=== PATIENT | female | born 1995 | race Hispanic/Latino ===

== ENCOUNTER 2022-10-03 10:10 | Emergency (ER) | payer SELFPAY ==
--- OUTSIDE RECORDS SUMMARY | 2022-10-03 10:15 | XMS REPORT | Continuity of Care Document ---
:1995 Author Organization [facility] t Address [address] [place] [address] Care Team Providers Name Role Phone DANIELLE SINHA Primary Care Physician Unavailable Talat Cruz Attending Clinician TALAT XIE Attending Clinician Unavailable DR JAVAD FLORES A Attending Clinician Unavailable DR JAVAD FLORES Admitting Clinician Unavailable Payers Payer Name Policy Type Policy Number Effective Date Expiration Date S ource [facility] [id number] 2013 00:00:00 Problems Condition Condition Condition Status Onset Resolution Last Treating Co mments Source Name Details Category Date Date Treatment Clinician Date Rubella Rubella Disease Active Univers immune immune 4-15 ity of 00:00: [place] 00 Medical Branch General General Disease Active Overview: Univ ers counseling counseling 4-14 Formattin ity of and advice and advice 00:00: g of this [place] for for note Medical contracept contracept might be Branch perlita perlita different management management from the original. ICD10 Diagnosis Term Clinical Administrative Coordinator Utility Morbid Morbid Disease Active Univers obesity obesity 4-14 ity of 00:00: [place] 00 Medical Branch Heart Heart Disease Active Univers palpitatio palpitatio 4-14 it y of ns ns 00:00: 00 Medical Branch Chest Chest Disease Active Univers discomfort discomfort 4-14 it y of 00:00: 00 Medical Branch Allergies, Adverse Reactions, Alerts Allergy Allergy Status Severity Reaction(s) Onset Inactive Treating Comm ents Source Name Type Date Date Clinician Willy Duarte Active Other - See 2020-10 depressi o Univers phetamin ty to comments 11-27 n ity of e-Amphet adverse 00:00: [place] amine reaction 00 Medical s Branch Ciproflo Propensi Active Anxiety 2020-10 Unive rs xacin ty to 2-19 ity of adverse 00:00: [place] reaction 00 Medical s Branch CIPROFLO DRUG Active Anxiety 2020-10 Univers XACIN INGREDI 2-19 ity of 00:00: [place] 00 [facility] Branch DEXTROAM DRUG Active Other-Cmnt 2020-10 Univ ers PHETAMIN 2-19 ity of E-AMPHET 00:00: [place] AMINE 00 Medical Branch NO KNOWN Drug Active Univers ALLERGIE Class ity of S [facility] Cipro DA Active Unknown [facility] Adderall DA Active Unknown [facility] Social History Social Habit Start Date Stop Date Quantity Comments Source Exposure to Not sure [facility] SARS-CoV-2 [facility] (event) Branch Alcohol intake 2021-09-26 2021-09-26 Current [facility] 00:00:00 00:00:00 non-drinker of [facility] alcohol [place] (finding) Tobacco use and 2014-01-20 2014-01-20 Never used Universit y of exposure 00:00:00 00:00:00 [facility] Sex Assigned At [birth year] Universit y of 00:00:00 00:00:00 [facility] Smoking Status Start Date Stop Date Source Never smoker [facility] Medications Ordered Filled Start Stop Current Ordering Indication Dosage Frequency Signature Comments Components Source Medication Medication Date Date Medication? Clinician (SIG) Name Name cephALEXin 2020-10- No 500mg 500 mg, Un avi (KEFLEX) 11-28- Oral, ONCE ity of capsule 500 05:00: 04:00 NOW, 1 [place] as mg 00 :00 dose, On [facility] 09/26/21 at 2300, VERITO
Re ason for Anti-Infec tive: Documented Infection< br>Documen halley Infection Site: Respirator y
Durat ion of Therapy: 7 days lidocaine 2020-10- No 10mL 10 mL, Unive rs 2% viscous 11-28- Oral, ity of (LIDOCAINE 04:00: 03:03 ONCE, 1 [place] as VISCOUS) 2 00 :00 dose, On Medic al % solution [place] [facility] 10 mL 09/26/21 at 2200, VERITO dexamethaso 2020-10- No 10mg 10 mg, Uni vers ne 11-28 12-20 Intramuscu ity of (DECADRON 03:30: 02:36 lar, ONCE, [place] PHOSPHATE) 00 :00 1 dose, On Med ical injection [place] [facility] 10 mg 09/26/21 at 2130, STAT ketorolac 2020-10- No 60mg 60 mg, Unive rs (TORADOL) 11-28 12-20 Intramuscu ity of injection 03:30: 03:30 lar, ONCE, [place] 60 mg 00 :00 1 dose, On Medical [place] [facility] 09/26/21 at 2130, VERITO lidocaine 2020-10 Yes [id number] 10mL Take 10 mL Univers 2% viscous -19 by mouth ity o f (LIDOCAINE 00:00: every 6 [place] VISCOUS) 2 00 (six) Medical % solution hours as Branc h needed for Local anesthesia (apply topically as needed). cephALEXin 2020-10 No [id number] 500mg Take 1 Univers (KEFLEX) 11-27 12-27 capsule by ity of 500 mg 00:00: 05:59 mouth 2 [place] capsule 00 :00 (two) Medical times Branch daily for 7 days. predniSONE 2020-10 No [id number] 40mg Take 2 Univers 20 mg 11-27 12-25 tablets by ity of tablet 00:00: 05:59 mouth [place] 00 :00 daily for Medical 5 days. Branch IBUPROFEN Yes Take by Unive rs ORAL 4-14 mouth. ity of 16:24: [address] Immunizations Ordered Filled Immunization Date Status Comments [facility] e Immunization Name Name Td 2008-05-22 Completed University 00:00:00 [facility] Vital Signs Vital Name Observation Time Observation Value Comments Source Systolic blood 2021-09-27 04:03:00 126 mm[Hg] Carmen burty of pressure [facility] Diastolic blood 2021-09-27 04:03:00 78 mm[Hg] Univperry rsity of pressure [facility] Heart rate 2021-09-27 04:03:00 89 /min [facility] Respiratory rate 2021-09-27 04:03:00 15 /min [facility] Oxygen saturation in 2021-09-27 04:03:00 98 /min [facility] Arterial blood by [facility] Pulse oximetry [place] Body temperature 2021-09-27 02:05:[address] [facility] Body height 2021-09-27 02:05:00 152.4 cm [facility] Body weight 2021-09-27 02:05:00 85.14 kg [facility] BMI 2021-09-27 02:05:00 36.66 kg/m2 [facility] Height 2019-11-30 15:38:00 152.4 CM Weight 2019-11-30 15:38:00 81.64 KG Procedures Procedure Date / Time Performed Performing Clinician Sourc e POCT TEST 2021-09-27 02:23:00 Talat Xie [facility] URINALYSIS 2021-09-27 02:22:00 Talat Xie [facility] NOTICE OF PRIVACY 2021-09-27 01:56:25 Doctor Unassigned, No Univ [facility] Name [facility] CONSENT/REFUSAL FOR 2021-09-27 01:56:02 Doctor Unassigned, No [facility] AND Name [facility] TREATMENT Encounters Start End Encounter Admission Attending Care Care Encounter Source Date/Time Date/Time Type Type Clinicians Facility Department ID 2021-09-26 2021-09-26 Emergency Enzo [facility] [id number] Univers 20:09:00 22:14:00 Talat MEJIA [id number] i ty [facility] [id number] [facility] [id number] [facility] 084 Branch 2021-09-26 2021-09-26 Emergency X ROSEMARY XIE ERT [id number] Univers 20:09:00 22:14:00 TALAT [facility] 2019-11-30 2019-11-30 Emergency E [facility] [id number] [facility] 15:38:00 18:12:00 [facility] Results Test Description Test Time Test Comments Results Result Comments Source POCT TEST 2021-09-27 02:23:00 Test Item Value Reference Range Interpretation Comme nts POCT PREG (test code = 1605) negative On board controls acceptable with C Line (test code = 3574) present POCT PREG LOT # (test code = 3575) [id number] POCT PREG TEST DATE (test code = 3576) 11/08/2022 Lab Interpretation (test code = 22332-5) [facility] [id number] 08:27:00 Test Item Value Reference Range Interpretation Comments Culture Observations NO BETA HEMOLYTIC (test code = COB1) STREPTOCOCCUS ISOLATED Direct Exam (test code NEGATIVE FOR STREP A = DE1) ANTIGEN DIRECT INFLUENZA A AND B [id number] 16:28:00 Test Item Value Reference Range Interpretation Comments Direct Exam (test POSITIVE FOR INFLUENZA B code = DE1) ANTIGEN
--- NOTE | 2022-10-03 11:19 | RAD REPORT ---
EXAM DESCRIPTION: RAD - Chest Single View - 10/03/2022 11:08 am CLINICAL HISTORY: cough, sob Chest pain. COMPARISON: No comparisons FINDINGS: Portable technique limits examination quality. The lungs are grossly clear. The heart is normal in size. No displaced fractures. IMPRESSION: No acute intrathoracic process suspected.
[2022-10-03 12:08] LABS: SARS-COV-2 RT PCR NEGATIVE (NEGATIVE)
--- NOTE | 2022-10-03 12:27 | EDPHYS ---
Physician Documentation [facility] Name: Celestina Mei Age: 27 yrs Sex: Female : 1995 Arrival Date: 10/03/2022 Time: 10:14 Bed Treatment Private MD: ED Physician Manish Greene HPI: 10/03 10:21 This 27 yrs old Female presents to ER via Ambulatory with complaints of Cough, jmm Breathing Difficulty. 10:21 The patient or guardian reports cough. Onset: The symptoms/episode began/occurred jmm gradually, 4 day(s) ago. Modifying factors: The symptoms are alleviated by nothing, the symptoms are aggravated by nothing. Associated signs and symptoms: Pertinent negatives: diarrhea, sore throat. This is a 27 year old female with no chronic medical conditions that presents to the ED with complaints of cough, sob, worse in the evening. Family members have similar symptoms. Denies diarrhea, abdominal pain, sore throat. . 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 - Social history:: Smoking status: Patient denies any tobacco usage or history of. Patient/guardian denies using alcohol. ROS: 10:21 Constitutional: Positive for body aches, chills. jmm 10:21 Respiratory: Positive for cough, shortness of breath. 10:21 All other systems are negative. Exam: 10:21 Constitutional: This is a well developed, well nourished patient who is awake, alert, jmm and in no acute distress. Head/Face: atraumatic. Eyes: EOMI, no conjunctival erythema appreciated ENT: Moist Mucus Membranes Neck: Trachea midline, Supple Chest/axilla: Normal chest wall appearance and motion. Cardiovascular: Regular rate and rhythm. No edema appreciated 10:21 Abdomen/GI: Non distended Back: Normal ROM Skin: General appearance color normal MS/ Extremity: Moves all extremities, no obvious deformities appreciated, no edema noted to the lower extremities Neuro: Awake and alert Psych: Behavior is normal, Mood is normal, Patient is cooperative and pleasant 10:21 Respiratory: the patient does not display signs of respiratory distress, Respirations: normal, Breath sounds: wheezing: that is mild, is scattered. Vital Signs: 10:32 BP 126 / 89; Pulse 76; Resp 18; Temp 98.7(O); Pulse Ox 98% on R/A; Weight 81.65 kg; ld1 Height 5 ft. 0 in. (152.40 cm); Pain 0/10; 12:48 BP 124 / 84; Pulse 74; Resp 18; Pulse Ox 98% on R/A; em6 10:32 Body Mass Index 35.15 (81.65 kg, 152.40 cm) ld1 MDM: 10:37 Patient medically screened. [facility] 12:18 Data reviewed: vital signs, nurses notes. [facility] 12:26 Counseling: I had a detailed discussion with the patient and/or guardian regarding: the [facility] historical points, exam findings, and any diagnostic results supporting the discharge/admit diagnosis, radiology results, the need for outpatient follow up, to return to the emergency department if symptoms worsen or persist or if there are any questions or concerns that arise at home. 10/03 10:20 Order name: COVID-19/FLU A+B; Complete Time: 12:[address] [facility] 10/03 10:37 Order name: Chest Single View XRAY; Complete Time: 11:[address] [facility] Administered Medications: 12:40 Drug: Decadron (dexamethasone) 10 mg Route: IM; Site: right gluteus; em6 12:57 Follow up: Response: No adverse reaction em6 Disposition Summary: 10/03/22 12:26 Discharge Ordered Location: Home [facility] Condition: Stable [facility] Diagnosis - Cough [facility] Followup: [facility] - With: Private Physician - When: 2 - 3 days - Reason: Recheck today's complaints, Continuance of care, Re-evaluation by your physician Discharge Instructions: - Discharge Summary Sheet [facility] - Cough, Adult [facility] Forms: - Medication Reconciliation Form [facility] - Thank You Letter [facility] - Antibiotic Education [facility] - Prescription Opioid Use [facility] - Work release form em6 Prescriptions: - cefdinir 300 mg Oral capsule - take 1 capsule by ORAL route every 12 hours for 10 days; 20 capsule; Refills: [facility] 0, Product Selection Permitted - benzonatate 200 mg Oral Capsule - take 1 capsule by ORAL route 3 times per day As needed as needed; 20 capsule; dariel Refills: 0, Product Selection Permitted Signatures: Dispatcher [employer] Yassine Knight PA PA jmm Leal, Jahala RN RN jl7 Carol Gupta RN RN ld1 Emmy Casanova RN RN em6 Corrections: (The following items were deleted from the chart) 10:33 10:33 Allergies: No Known Allergies; ld1 ld1
--- NOTE | 2022-10-03 12:27 | ER ---
Nurse's Notes [facility] Name: Celestina Mei Age: 27 yrs Sex: Female : 1995 Arrival Date: 10/03/2022 Time: 10:14 Bed Treatment Private MD: Diagnosis: Cough Presentation: 10/03 10:32 Chief complaint: Patient states: Cough X 4-5 days. Coronavirus screen: Client presents ld1 with at least one sign or symptom that may indicate coronavirus-19. Standard/surgical mask placed on the client. Ebola Screen: No symptoms or risks identified at this time. Initial Sepsis Screen: Does the patient meet any 2 criteria? No. Patient's initial sepsis screen is negative. Does the patient have a suspected source of infection? No. Patient's initial sepsis screen is negative. Risk Assessment: Do you want to hurt yourself or someone else? Patient reports no desire to harm self or others. Onset of symptoms was October 03, 2022. 10:32 Method Of Arrival: Ambulatory ld1 10:32 Acuity: SERA 4 ld1 Triage Assessment: 10:33 General: Appears in no apparent distress. comfortable, Behavior is calm, cooperative, ld1 appropriate for age. Pain: Denies pain. EENT: No signs and/or symptoms were reported regarding the EENT system. Neuro: Level of Consciousness is awake, alert, obeys commands, Oriented to person, place, time, situation. Cardiovascular: Capillary refill < 3 seconds Patient's skin is warm and dry. Respiratory: Reports shortness of breath cough that is non-productive, Airway is patent Respiratory effort is even, unlabored, Onset: The symptoms/episode began/occurred gradually, the patient has mild shortness of breath. GI: No signs and/or symptoms were reported involving the gastrointestinal system. : No signs and/or symptoms were reported regarding the genitourinary system. 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 - Social history:: Smoking status: Patient denies any tobacco usage or history of. Patient/guardian denies using alcohol. Screenin:47 [facility] ED Fall Risk Assessment (Adult) History of falling in the last 3 months, em6 including since admission No falls in past 3 months (0 pts) Confusion or Disorientation No (0 pts) Intoxicated or Sedated No (0 pts) Impaired Gait No (0 pts) Mobility Assist Device Used No (0 pt) Altered Elimination No (0 pt) Score/Fall Risk Level 0 - 2 = Low Risk Oriented to surroundings, Maintained a safe environment, Educated pt \T\ family on fall prevention, incl call for assistance when getting out of bed, Assessed \T\ reinforced patient's understanding of fall precautions, Provided non-skid footwear, Hourly rounding (assess needs \T\ fall precautionary measures) done, Used ambulatory aids as needed (educated on \T\ assisted with), Used gait belt as appropriate. Abuse screen: Denies threats or abuse. Nutritional screening: No deficits noted. Tuberculosis screening: No symptoms or risk factors identified. Assessment: 12:47 Reassessment: see triage assessmernt. Cardiovascular:. Cardiovascular: Rhythm is sinus em6 rhythm. Respiratory: Airway is patent Respiratory effort is even, unlabored, Respiratory pattern is regular, symmetrical, Breath sounds are clear bilaterally. Vital Signs: 10:32 BP 126 / 89; Pulse 76; Resp 18; Temp 98.7(O); Pulse Ox 98% on R/A; Weight 81.65 kg; ld1 Height 5 ft. 0 in. (152.40 cm); Pain 0/10; 12:48 BP 124 / 84; Pulse 74; Resp 18; Pulse Ox 98% on R/A; em6 10:32 Body Mass Index 35.15 (81.65 kg, 152.40 cm) ld1 ED Course: 10:14 Patient arrived in ED. rg4 10:17 Yassine Paz PA is PHCP. jmm 10:17 Manish Greene MD is Attending Physician. jmm 10:33 Triage completed. ld1 10:33 Arm band placed on right wrist. ld1 10:34 COVID-19/FLU A+B Sent. ld1 11:09 Chest Single View XRAY In Process Unspecified. EDMS 12:23 Pushpa Salter RN is Primary Nurse. jl7 12:47 Bed in low position. Call light in reach. Side rails up X 1. speech therapy teacher on. Pulse em6 ox on. NIBP on. Warm blanket given. 12:48 No provider procedures requiring assistance completed. Patient did not have IV access em6 during this emergency room visit. Administered Medications: 12:40 Drug: Decadron (dexamethasone) 10 mg Route: IM; Site: right gluteus; em6 12:57 Follow up: Response: No adverse reaction em6 Medication: 12:47 VIS not applicable for this client. em6 Outcome: 12:26 Discharge ordered by MD. vieira 12:56 Discharged to home ambulatory. em6 12:56 Condition: stable 12:56 Discharge instructions given to patient, Instructed on discharge instructions, follow up and referral plans. medication usage, Demonstrated understanding of instructions, follow-up care, medications, Prescriptions given X 2. 12:57 Patient left the ED. em6 Signatures: Dispatcher [employer] EDMS Yassine Pza PA PA jmm Garcia, Rubi rg4 Pushpa Salter RN RN jl7 Carol Gupta, RN RN ld1 Emmy Casanova, RN RN em6 Corrections: (The following items were deleted from the chart) 10:33 10:33 Allergies: No Known Allergies; ld1 ld1
[2022-10-03] MEDS ORDERED: dexAMETHasone 10 MG/ML VIAL ONE (12:43)
[2022-10-03 13:08] VITALS: TEMP 98.7; O2SAT 98
[2022-10-03 13:09] VITALS: BP 124/84
== END 2022-10-03 12:57 | disposition home or self-care (01) ==
LOC: ER 10:10
DX: R05.9 Cough, unspecified (principal); Z20.822 Contact with and (suspected) exposure to COVID-19; Z88.1 Allergy status to other antibiotic agents; Z88.8 Allergy status to other drugs, medicaments and biological substances
CPT/HCPCS: 0240U; 71045; 96372; 99284; J1100

== ENCOUNTER 2023-03-04 08:46 | Emergency (ER) | payer SELFPAY ==
--- OUTSIDE RECORDS SUMMARY | 2023-03-04 08:49 | XMS REPORT | Continuity of Care Document ---
:1995 Author Organization [facility] t Address [address] [place] [address] [place] [id number] Care Team Providers Name Role Phone DANIELLE SINHA Primary Care Physician Unavailable Brie Cruz Attending Clinician BRIE XIE Attending Clinician Unavailable DR JAVAD FLORES A Attending Clinician Unavailable DR JAVAD FLORES Admitting Clinician Unavailable Payers Payer Name Policy Type Policy Number Effective Date Expiration Date S ource [facility] [id number] 2013 00:00:00 Problems Condition Condition Condition Status Onset Resolution Last Treating Co mments Source Name Details Category Date Date Treatment Clinician Date Rubella Rubella Disease Active Univers immune immune 4-15 ity of 00:00: [place] 00 Medical Branch General General Disease Active Overview: Univ ers counseling counseling 4-14 Formattin ity of and advice and advice 00:00: g of this [place] for for note Medical contracept contracept might be Branch perlita perlita different management management from the original. 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 Morbid Morbid Disease Active Univers obesity obesity 4-14 ity of 00:00: 00 Medical Branch Heart Heart Disease Active [...] adverse 00:00: [place] amine reaction 00 Medical Branch Ciproflo Propensi Active Anxiety 2020-10 Unive rs xacin ty to 2-19 ity of adverse 00:00: [place] reaction 00 Medical Branch CIPROFLO DRUG Active Anxiety 2020-10 Univers XACIN INGREDI 2-19 ity of 00:00: [place] 00 [facility] Branch DEXTROAM DRUG Active Other-Cmnt 2020-10 Univ ers PHETAMIN 2-19 ity of E-AMPHET 00:00: [place] AMINE 00 Medical Branch NO KNOWN Drug Active Univers ALLERGIE Class ity of S [facility] Cipro DA Active Unknown [facility] Adderall DA Active Unknown [facility] [place] Social History Social Habit Start Date Stop Date Quantity Comments Source Exposure to Not sure [facility] SARS-CoV-[address] [facility] (event) Branch Alcohol intake 2021-09-26 2021-09-26 [facility] 00:00:00 00:00:00 non-drinker of [facility] alcohol [place] (finding) Tobacco use and 2014-01-20 2014-01-20 Never used Universit y of exposure 00:00:00 00:00:00 [facility] Sex Ass[birth year] At [birth year] Universit y of 00:00:00 00:00:00 [facility] Smoking Status Start Date Stop Date Source Never smoker [facility] Medications Ordered Filled Start Stop Current Ordering Indication Dosage Frequency Signature Comments Components Source Medication Medication Date Date Medication? Clinician (SIG) Name Name cephALEXin 2020-10- No 500mg 500 mg, Un avi (KEFLEX) 11-28- Oral, ONCE ity of capsule 500 05:00: 04:00 NOW, 1 [place] as mg 00 :00 dose, On [facility] 09/26/21 at 2300, VERITO
Re ason for Anti-Infec tive: Documented Infection< br>Documen halley Infection Site: Respirator y
Durat ion of Therapy: 7 days lidocaine 2020-10- No 10mL 10 mL, Unive rs 2% viscous 11-28- Oral, ity of (LIDOCAINE 04:00: 03:03 ONCE, 1 [place] as VISCOUS) 2 00 :00 dose, On Medic al % solution [place] 10 mL 09/26/21 at 2200, VERITO dexamethaso 2020-10- No 10mg 10 mg, Uni vers ne 11-28 12-20 Intramuscu ity of (DECADRON 03:30: 02:36 lar, ONCE, [place] PHOSPHATE) 00 :00 1 dose, On Med ical injection [place] [facility] 10 mg 09/26/21 at 2130, STAT ketorolac 2020-10- No 60mg 60 mg, Unive rs (TORADOL) 11-28-20 Intramuscu ity of injection 03:30: 03:30 lar, ONCE, [place] 60 mg 00 :00 1 dose, On Medical [place] [facility] 09/26/21 at 2130, VERITO lidocaine 2020-10 Yes [id number] 10mL Take 10 mL Univers 2% viscous -19 by mouth ity o f (LIDOCAINE 00:00: every 6 [place] VISCOUS) 2 00 (six) Medical % solution hours as Branc h needed for Local anesthesia (apply topically as needed). cephALEXin 2020-10 No [id number] 500mg Take 1 Univers (KEFLEX) 11-27 12-27 capsule by ity of 500 mg 00:00: 05:59 mouth 2 [place] capsule 00 :00 (two) Medical times Branch daily for 7 days. predniSONE 2020-10 No [id number] 40mg Take 2 Univers 20 mg 11-27 12-25 tablets by ity of tablet 00:00: 05:59 mouth [place] 00 :00 daily for Medical 5 days. Branch IBUPROFEN Yes Take by Unive rs ORAL 4-14 mouth. ity of 16:24: [address] Immunizations Ordered Filled Immunization Date Status Comments [facility] Immunization Name Name Td 2008-05-22 Completed University of 00:00:00 [facility] Vital Signs Vital Name Observation Time Observation Value Comments Source Systolic blood 2021-09-27 04:03:00 126 mm[Hg] Jeanetteer sity of pressure [facility] Diastolic blood 2021-09-27 04:03:00 78 mm[Hg] Unive rsity of pressure [facility] Heart rate 2021-09-27 04:03:00 89 /min [facility] Respiratory rate 2021-09-27 04:03:00 15 /min [facility] Oxygen saturation in 2021-09-27 04:03:00 98 /min [facility] Arterial blood by [facility] Pulse oximetry [place] Body temperature 2021-09-27 02:05:00 37.67 Kandice [facility] Body height 2021-09-27 02:05:00 152.4 cm [facility] Body weight 2021-09-27 02:05:00 85.14 kg [facility] BMI 2021-09-27 02:05:00 36.66 kg/m2 [facility] Height 2019-11-30 15:38:00 152.4 CM Weight 2019-11-30 15:38:00 81.64 KG Procedures Procedure Date / Time Performed Performing Clinician Sourc e POCT TEST 2021-09-27 02:23:00 Brie Xie [facility] URINALYSIS 2021-09-27 02:22:00 Brie Xie [facility] NOTICE OF PRIVACY 2021-09-27 01:56:25 Doctor Unassigned, No [facility] PRACTICES Name [facility] CONSENT/REFUSAL FOR 2021-09-27 01:56:02 [facility] AND Name [facility] Branch TREATMENT Encounters Start End Encounter Admission Attending Care Care Encounter Source Date/Time Date/Time Type Type Clinicians Facility Department ID 2021-09-26 2021-09-26 Emergency Enzo [facility] [id number] Univers 20:09:00 22:14:00 Brie MEJIA [id number] i ty [facility] [id number] [facility] [id number] [facility] 084 Branch 2021-09-26 2021-09-26 Emergency X ROSEMARY XIE ERT [id number] Univers 20:09:00 22:14:00 BRIE [facility] 2019-11-30 2019-11-30 Emergency E MARK, [facility] [id number] [facility] 15:38:00 18:12:00 [facility] Results Test Description Test Time Test Comments Results Result Comments Source POCT TEST 2021-09-27 02:23:00 Test Item Value Reference Range Interpretation Comme nts POCT PREG (test code = 1605) negative On board controls acceptable with C Line (test code = 3574) present POCT PREG LOT # (test code = 3575) [id number] POCT PREG TEST DATE (test code = 3576) 11/08/2022 Lab Interpretation (test code = 34661-4) [facility] [id number] 08:27:00 Test Item Value Reference Range Interpretation Comments Culture Observations NO BETA HEMOLYTIC (test code = COB1) STREPTOCOCCUS ISOLATED Direct Exam (test code NEGATIVE FOR STREP A = DE1) ANTIGEN DIRECT INFLUENZA A AND B [id number] 16:28:00 Test Item Value Reference Range Interpretation Comments Direct Exam (test POSITIVE FOR INFLUENZA B code = DE1) ANTIGEN
[2023-03-04] MEDS ORDERED: ONDANSETRON 4 MG/2 ML VIAL ONE ×2 (09:33→11:51)
[2023-03-04] MEDS ORDERED: ASPIRIN 81 MG CHEWABLE TABLET ONE (09:33)
[2023-03-04] MEDS ORDERED: FENTANYL CITR 100 MCG/2 ML ONE ×2 (09:33→11:51)
[2023-03-04] MEDS ORDERED: NA CHLORIDE 0.9% 1,000 ML ONE (09:34)
[2023-03-04] MEDS ORDERED: FAMOTIDINE 20 MG/2 ML VIAL IV ONE (09:34)
[2023-03-04 09:43] LABS: Absolute Lymphocytes (CBC) 1.6 K/uL (0.7-4.9); Hematocrit 38.7 % (36.0-45.0); Lymphocytes % 15.4 % (15.3-44.8); MCV 76.4 fL (80-100); MPV 7.7 fL (7.6-11.3); RBC Red Blood Cell Count 5.06 M/uL (3.86-4.86)
[2023-03-04 09:45] LABS: Protime INR 0.95
[2023-03-04 10:09] LABS: ALT/SGPT 35 U/L (13-56); AST/SGOT 20 U/L (15-37); Albumin 3.7 g/dL (3.4-5.0); Alkaline Phosphatase 135 U/L (45-117); BUN Blood Urea Nitrogen 13 mg/dL (7-18); Bicarbonate 27 mEq/L (21-32); Bilirubin Total 0.2 mg/dL (0.2-1.0); Glomerular Filtration Rate 125 ml/min (=/>90); Glucose Level 104 mg/dL (74-106); Lipase 25 U/L (13-75); NT PRO-BNP 26 pg/mL (<125); Potassium 3.9 mEq/L (3.5-5.1); Protein, Total 7.5 g/dL (6.4-8.2); Sodium Level 139 mEq/L (136-145); Troponin High Sensitivity 13.1 pg/mL (<58.9)
[2023-03-04 10:12] LABS: Bilirubin Direct < 0.1 mg/dL (0-0.2); Bilirubin Indirect, Calculated ND mg/dL (0.2-0.8)
--- NOTE | 2023-03-04 10:37 | RAD REPORT ---
EXAM DESCRIPTION: US - Abdomen Exam Limited - 03/04/2023 10:21 am CLINICAL HISTORY: Abdominal pain COMPARISON: CT abdomen and pelvis 05/16/2014. TECHNIQUE: Sonographic grayscale and color flow images of the right upper abdominal quadrant were obtained. FINDINGS: Gallbladder size is normal. No gallstones, wall thickening or pericholecystic fluid. Commo n bile duct is normal with no common duct stone identified. Visualized portions of the liver are unremarkable. Visualized aspects of the right kidney are unremarkable. IMPRESSION: Normal ultrasound of the gallbladder. No evidence of intra or extrahepatic biliary ducta l dilation.
--- NOTE | 2023-03-04 10:41 | RAD REPORT ---
EXAM DESCRIPTION: RADChest Single View03/04/2023 10:22 am CLINICAL HISTORY: CHEST PAIN COMPARISON: Chest Single View dated 10/03/2022 TECHNIQUE: Portable AP view of the chest. FINDINGS: The lungs are clear. No pneumothorax or effusion. The cardiomediastinal contours are unre markable. IMPRESSION: No acute cardiopulmonary process.
[2023-03-04 10:54] LABS: Specific Gravity 1.013 (1.005-1.030)
--- NOTE | 2023-03-04 11:59 | RAD REPORT ---
EXAM DESCRIPTION: CT - Angio Aorta For Dissection - 03/04/2023 11:18 am CLINICAL HISTORY: Abdominal pain. Left-sided chest pain radiates to left upper back. Shortness of b reath COMPARISON: Chest radiograph of earlier same date. CT abdomen and pelvis 05/16/2014 TECHNIQUE: Dynamically enhanced 3 mm thick images of the chest, abdomen, and upper pelvis were obtai dmitri during administration of approximately 95mL Isovue 370 IV contrast. Sagittal and coronal reconstr uction images were generated and reviewed. Exam utilizes a protocol to evaluate entire course of the aorta. All CT scans are performed using dose optimization technique as appropriate and may include automated exposure control or mA/KV adjustment according to patient size. FINDINGS: Aorta is normal in diameter with no dissection or other acute aortic findings. Reconstruct ion images show no significant findings. Pulmonary arteries are normal as well. No mass or infiltrate in the lung parenchyma. No pleural thickening, pleural effusion or pneumothorax . No abnormal mediastinal or hilar mass or lymphadenopathy seen. No chest wall mass or abnormal axillar y lymphadenopathy. Celiac, SMA and renal arteries show no suspicious findings. Solid abdominal viscera and bowel show no significant findings. No mass or abnormal lymphadenopathy. Appendix is unremarkable. Small hypoatten uating lesions in the region of the lower uterine segment, nonspecific, and could relate to small sub endometrial cyst or small fibroids. IMPRESSION: Negative CT aortogram. No other acute findings.
--- NOTE | 2023-03-04 12:20 | EDPHYS ---
Physician Documentation [facility] Name: Celestina Mei Age: 27 yrs Sex: Female : 1995 Arrival Date: 03/04/2023 Time: 08:46 Bed 14 Private MD: DENEEN Physician Manish Greene HPI: 03/04 09:23 This 27 yrs old Female presents to ER via Ambulatory with complaints of Back [place] Pain, Chest Pain, Shortness Of Breath. 09:23 The patient presents with pain that is acute. [place] 09:24 The patient or guardian reports chest pain that is located primarily in the anterior [place] chest wall, left. The symptoms are located in the left scapular area and left subscapular area. Onset: The symptoms/episode began/occurred 2 day(s) ago. The pain radiates to the left scapular area and left subscapular area. Associated signs and symptoms: Pertinent positives: chest pain. The problem was sustained from unknown cause. Modifying factors: The patient symptoms are alleviated by nothing, the patient symptoms are aggravated by any movement. The pain radiates to left back. Severity of symptoms: At their worst the symptoms were moderate, in the emergency department the symptoms are unchanged. The chest pain is described as a pressure. Modifying factors: The symptoms are alleviated by nothing. the symptoms are aggravated by nothing. Severity of pain: At its worst the pain was moderate in the emergency department the pain is unchanged. The patient has not experienced similar symptoms in the past. 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 - Social history:: Smoking status: Patient denies any tobacco usage or history of. ROS: 09:26 Constitutional: Negative for fever, chills, and weight loss, Eyes: Negative for injury, [place] pain, redness, and discharge, ENT: Negative for injury, pain, and discharge, Neck: Negative for injury, pain, and swelling, Cardiovascular: Negative for chest pain, palpitations, and edema, Respiratory: Negative for shortness of breath, cough, wheezing, and pleuritic chest pain, Back: Negative for injury and pain, : Negative for injury, bleeding, discharge, and swelling, MS/Extremity: Negative for injury and deformity, Skin: Negative for injury, rash, and discoloration, Neuro: Negative for headache, weakness, numbness, tingling, and seizure, Psych: Negative for depression, anxiety, suicide ideation, homicidal ideation, and hallucinations, Allergy/Immunology: Negative for hives, rash, and allergies, Endocrine: Negative for neck swelling, polydipsia, polyuria, polyphagia, and marked weight changes, Hematologic/Lymphatic: Negative for swollen nodes, abnormal bleeding, and unusual bruising. 09:26 Abdomen/GI: Positive for abdominal pain, of the epigastric area. Exam: 09:26 Constitutional: This is a well developed, well nourished patient who is awake, alert, [place] and in no acute distress. Head/Face: Normocephalic, atraumatic. Eyes: Pupils equal round and reactive to light, extra-ocular motions intact. Lids and lashes normal. Conjunctiva and sclera are non-icteric and not injected. Cornea within normal limits. Periorbital areas with no swelling, redness, or edema. ENT: Nares patent. No nasal discharge, no septal abnormalities noted. Tympanic membranes are normal and external auditory canals are clear. Oropharynx with no redness, swelling, or masses, exudates, or evidence of obstruction, uvula midline. Mucous membranes moist. Neck: Trachea midline, no thyromegaly or masses palpated, and no cervical lymphadenopathy. Supple, full range of motion without nuchal rigidity, or vertebral point tenderness. No Meningismus. Chest/axilla: Normal chest wall appearance and motion. Nontender with no deformity. No lesions are appreciated. Cardiovascular: Regular rate and rhythm with a normal S1 and S2. No gallops, murmurs, or rubs. Normal PMI, no JVD. No pulse deficits. Respiratory: Lungs have equal breath sounds bilaterally, clear to auscultation and percussion. No rales, rhonchi or wheezes noted. No increased work of breathing, no retractions or nasal flaring. Abdomen/GI: Soft, non-tender, with normal bowel sounds. No distension or tympany. No guarding or rebound. No evidence of tenderness throughout. Back: No spinal tenderness. No costovertebral tenderness. Full range of motion. Skin: Warm, dry with normal turgor. Normal color with no rashes, no lesions, and no evidence of cellulitis. MS/ Extremity: Pulses equal, no cyanosis. Neurovascular intact. Full, normal range of motion. Neuro: Awake and alert, GCS 15, oriented to person, place, time, and situation. Cranial nerves II-XII grossly intact. Motor strength 5/5 in all extremities. Sensory grossly intact. Cerebellar exam normal. Normal gait. Psych: Awake, alert, with orientation to person, place and time. Behavior, mood, and affect are within normal limits. 09:26 ECG was reviewed by the Attending Physician. 11:16 ECG was reviewed by the Attending Physician. [place] Vital Signs: 09:02 BP 145 / 75; Pulse 66; Resp 16; Temp 98.1; Pulse Ox 99% on R/A; Weight 81.65 kg; Height hb 5 ft. 0 in. ; Pain 7/10; 09:30 BP 140 / 88; Pulse 69; Resp 16; Pulse Ox 99% on R/A; db 10:44 BP 151 / 92; Pulse 93; Resp 16; Pulse Ox 100% on R/A; db 11:43 BP 139 / 88; Pulse 62; Resp 16; Pulse Ox 100% on R/A; db 12:30 BP 109 / 70; Pulse 66; Resp 16; Pulse Ox 100% on R/A; db 09:02 Body Mass Index 35.15 (81.65 kg, 152.4 cm) hb 09:02 Pain Scale: Adult hb MDM: 08:48 Patient medically screened. charm[place] 09:27 Differential diagnosis: abnormal EKG, acute pericarditis, anxiety, Cholelithiasis [place] chronic back pain, esophagitis, pneumonia, pulmonary embolus, stable angina, Hydronephrosis Peptic Ulcer Renal Infarction ruptured disc, unstable angina. HEART Score: History: Slightly Suspicious (0), ECG: Normal (0), Age: < or = 45 years (0), Risk Factors: No Risk Factors Known (0), Troponin: < or = 1 x Normal Limit (0). PHIL Risk Score: TOTAL SCORE = 0. Data reviewed: vital signs, nurses notes, lab test result(s), EKG, radiologic studies, CT scan, plain films, ultrasound. Consideration of Admission/Observation Escalation of care including admission/observation considered. I considered the following discharge prescriptions or medication management in the emergency department Medications were administered in the Emergency Department. See MAR. Independent interpretation of the following test(s) in the Emergency Department EKG: See my EKG interpretation above. Test considered but Not performed: MRI: no mrcp. Care significantly affected by the following chronic conditions: nad. Counseling: I had a detailed discussion with the patient and/or guardian regarding: the historical points, exam findings, and any diagnostic results supporting the discharge/admit diagnosis, radiology results. 03/04 09:13 Order name: Basic Metabolic Panel; Complete Time: 10:24 [facility] 03/04 09:13 Order name: CBC with Diff; Complete Time: 09:45 [place] 03/04 09:13 Order name: LFT's; Complete Time: 10:24 03/04 09:13 Order name: Magnesium; Complete Time: 10:24 03/04 09:13 Order name: NT PRO-BNP; Complete Time: 10:24 03/04 09:13 Order name: PT-INR; Complete Time: 10:13 03/04 09:13 Order name: Troponin HS; Complete Time: 10:24 03/04 09:13 Order name: Lipase; Complete Time: 10:24 [facility] 03/04 09:20 Order name: PREGU; Complete Time: 11:37 [facility] 03/04 10:39 Order name: Troponin High Sensitivity: 1200 pm 03/04 09:13 Order name: XRAY Chest (1 view); Complete Time: 10:59 03/04 09:13 Order name: CT Aorta for Dissection: pe/dissection; Complete Time: 12:19 03/04 09:13 Order name: US Abdomen Limited; Complete Time: 10:59 03/04 09:13 Order name: EKG; Complete Time: 09:14 03/04 10:53 Order name: EKG; Complete Time: 10:54 03/04 09:13 Order name: Cardiac monitoring; Complete Time: 09:29 03/04 09:13 Order name: EKG - Nurse/Tech; Complete Time: 09:17 03/04 09:13 Order name: IV Saline Lock; Complete Time: 09:29 03/04 09:13 Order name: Labs collected and sent; Complete Time: 03/04 09:13 Order name: O2 Per Protocol; Complete Time: [facility] 03/04 09:13 Order name: O2 Sat Monitoring; Complete Time: [facility] 03/04 10:53 Order name: EKG - Nurse/Tech; Complete Time: 11:03 [facility] EC: Rate is 70 beats/min. Rhythm is regular. QRS [place] is Normal. [place] interval is normal. QRS [place] interval is normal. QT interval is normal. No Q waves. T waves are Normal. No ST changes noted. Clinical impression: NSR w/ Non-specific ST/T Changes and No evidence of ischemia. Interpreted by me. Reviewed by me. 11:16 Rate is 66 beats/min. Rhythm is regular. QRS [place] is Normal. [place] interval is normal. QRS [place] interval is normal. QT interval is normal. No Q waves. T waves are Normal. No ST changes noted. Clinical impression: NSR w/ Non-specific ST/T Changes and No evidence of ischemia. Interpreted by me. Reviewed by me. Administered Medications: 09:35 Drug: NS 0.9% IV 1000 ml Route: IV; Rate: 1 bolus; Site: right antecubital; db 12:53 Follow up: Response: No adverse reaction; IV Status: Completed infusion; IV Intake: db 1000ml 09:35 Drug: Famotidine IVP 20 mg Route: IVP; Site: right antecubital; db 12:53 Follow up: Response: No adverse reaction db 09:35 Drug: fentaNYL (PF) IVP 50 mcg Route: IVP; Site: right antecubital; db 12:53 Follow up: Response: No adverse reaction db 09:35 Drug: Ondansetron IVP 4 mg Route: IVP; Site: right antecubital; db 12:53 Follow up: Response: No adverse reaction db 09:35 Drug: Aspirin PO Chewable Tablet 81 mg Route: PO; db 12:53 Follow up: Response: No adverse reaction db 11:55 Drug: fentaNYL (PF) IVP 50 mcg Route: IVP; Site: right antecubital; db 12:52 Follow up: Response: No adverse reaction db 11:55 Drug: Ondansetron IVP 4 mg Route: IVP; Site: right antecubital; db 12:52 Follow up: Response: No adverse reaction db Disposition Summary: 03/04/23 12:20 Discharge Ordered Location: Home [place] Problem: new [place] Symptoms: have improved [place] Condition: Stable [place] Diagnosis - Chest pain, unspecified [place] - Dyspnea [place] - Unspecified symptoms and signs involving the musculoskeletal system charm[place] Followup: charm[place] - With: Private Physician - When: 2 - 3 days - Reason: Recheck today's complaints, Continuance of care, Re-evaluation by your physician Followup: [place] - With: - When: 2 - 3 days - Reason: Recheck today's complaints, Re-evaluation by your physician Discharge Instructions: - Discharge Summary Sheet [place] - Nonspecific Chest Pain, Adult [place] - Chest Wall Pain [place] - Shortness of Breath, Adult [place] - Chest Wall Pain, [id number] [place] - Nonspecific Chest Pain, Adult, Spda-iv-Eono charm[place] - Aspirin and Your Heart charmaine Forms: - Medication Reconciliation Form charm[place] - Thank You Letter charm[place] - Antibiotic Education charm[place] - Prescription Opioid Use [place] - Work release form eb Prescriptions: - Ibuprofen 600 mg Oral Tablet - take 1 tablet by ORAL route every 6 hours As needed take with food; 30 tablet; [facility] Refills: 0, Product Selection Permitted - Pepcid 20 mg Oral Tablet - take 1 tablet by ORAL route every 12 hours for 21 days; 42 tablet; Refills: 0, [facility] Product Selection Permitted - Zofran 4 mg Oral Tablet - take 1 tablet by ORAL route every 12 hours As needed; 20 tablet; Refills: 0, [facility] Product Selection Permitted Signatures: Dispatcher [employer] Manish Garrison MD MD cha Baxter, Heather, RN RN Christin Sidhu RN RN db
--- NOTE | 2023-03-04 12:20 | ER ---
Nurse's Notes [facility] Name: Celestina Mei Age: 27 yrs Sex: Female : 1995 Arrival Date: 03/04/2023 Time: 08:46 Bed 14 Private MD: Diagnosis: Chest pain, unspecified;Dyspnea;Unspecified symptoms and signs involving the musculoskeletal system Presentation: 03/04 09:02 Chief complaint: Left sided chest pain that radiates to left upper back and SOB x 2 hb days. Coronavirus screen: At this time, the client does not indicate any symptoms associated with coronavirus-19. Ebola Screen: No symptoms or risks identified at this time. Initial Sepsis Screen: Does the patient meet any 2 criteria? No. Patient's initial sepsis screen is negative. Does the patient have a suspected source of infection? No. Patient's initial sepsis screen is negative. Risk Assessment: Do you want to hurt yourself or someone else? Patient reports no desire to harm self or others. Onset of symptoms was March 03, 2023. 09:02 Method Of Arrival: Ambulatory hb 09:02 Acuity: SERA 3 hb Triage Assessment: 09:36 General: Appears in no apparent distress. uncomfortable, Behavior is cooperative, db anxious. Pain: Complains of pain in chest and epigastric area. Musculoskeletal: Circulation, motion, and sensation intact. Capillary refill < 3 seconds. 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 - Social history:: Smoking status: Patient denies any tobacco usage or history of. Screenin:55 [facility] ED Fall Risk Assessment (Adult) History of falling in the last 3 months, db including since admission No falls in past 3 months (0 pts) Confusion or Disorientation No (0 pts) Intoxicated or Sedated No (0 pts) Impaired Gait No (0 pts) Mobility Assist Device Used No (0 pt) Altered Elimination No (0 pt) Score/Fall Risk Level 0 - 2 = Low Risk Oriented to surroundings, Maintained a safe environment. Abuse screen: Denies threats or abuse. Denies injuries from another. Nutritional screening: No deficits noted. Tuberculosis screening: No symptoms or risk factors identified. Assessment: 09:36 Reassessment: Patient appears in no apparent distress at this time. Patient and/or db family updated on plan of care and expected duration. Pain level reassessed. Patient is alert, oriented x 3, equal unlabored respirations, skin warm/dry/pink. left middle chest pain that radiates to the back started yesterday. Neuro: Level of Consciousness is awake, alert, obeys commands, Oriented to person, place, time, situation. Respiratory: Airway Respiratory effort is even, unlabored, Respiratory pattern is regular, agonal. Vital Signs: 09:02 BP 145 / 75; Pulse 66; Resp 16; Temp 98.1; Pulse Ox 99% on R/A; Weight 81.65 kg; Height hb 5 ft. 0 in. ; Pain 7/10; 09:30 BP 140 / 88; Pulse 69; Resp 16; Pulse Ox 99% on R/A; db 10:44 BP 151 / 92; Pulse 93; Resp 16; Pulse Ox 100% on R/A; db 11:43 BP 139 / 88; Pulse 62; Resp 16; Pulse Ox 100% on R/A; db 12:30 BP 109 / 70; Pulse 66; Resp 16; Pulse Ox 100% on R/A; db 09:02 Body Mass Index 35.15 (81.65 kg, 152.4 cm) hb 09:02 Pain Scale: Adult hb ED Course: 08:47 Patient arrived in ED. ts1 08:48 Manish Greene MD is Attending Physician. charmaine 09:04 Triage completed. hb 09:04 Arm band placed on. hb 09:23 Christin Yañez, RN is Primary Nurse. db 09:29 Lipase Sent. bc6 09:29 Basic Metabolic Panel Sent. bc6 09:29 CBC with Diff Sent. bc6 09:29 LFT's Sent. bc6 09:29 Magnesium Sent. bc6 09:29 NT PRO-BNP Sent. bc6 09:29 PT-INR Sent. bc6 09:29 Troponin HS Sent. bc6 09:29 Inserted saline lock: 20 gauge in right antecubital area, using aseptic technique. bc6 09:44 Radiology exam delayed due to test not completed at this time. bq 10:23 US Abdomen Limited In Process Unspecified. EDMS 10:24 XRAY Chest (1 view) In Process Unspecified. EDMS 10:44 Patient has correct armband on for positive identification. Bed in low position. Call db light in reach. Side rails up X 1. Pulse ox on. NIBP on. 10:44 No provider procedures requiring assistance completed. IV discontinued, intact, db bleeding controlled, No redness/swelling at site. 11:19 CT Aorta for Dissection: pe/dissection In Process Unspecified. EDMS 11:55 Repeat lab(s) drawn. by ct, sent to lab. db 12:19 Perry Neal MD is Referral Physician. charmaine Administered Medications: 09:35 Drug: NS 0.9% IV 1000 ml Route: IV; Rate: 1 bolus; Site: right antecubital; db 12:53 Follow up: Response: No adverse reaction; IV Status: Completed infusion; IV Intake: db 1000ml 09:35 Drug: Famotidine IVP 20 mg Route: IVP; Site: right antecubital; db 12:53 Follow up: Response: No adverse reaction db 09:35 Drug: fentaNYL (PF) IVP 50 mcg Route: IVP; Site: right antecubital; db 12:53 Follow up: Response: No adverse reaction db 09:35 Drug: Ondansetron IVP 4 mg Route: IVP; Site: right antecubital; db 12:53 Follow up: Response: No adverse reaction db 09:35 Drug: Aspirin PO Chewable Tablet 81 mg Route: PO; db 12:53 Follow up: Response: No adverse reaction db 11:55 Drug: fentaNYL (PF) IVP 50 mcg Route: IVP; Site: right antecubital; db 12:52 Follow up: Response: No adverse reaction db 11:55 Drug: Ondansetron IVP 4 mg Route: IVP; Site: right antecubital; db 12:52 Follow up: Response: No adverse reaction db Medication: 10:44 VIS not applicable for this client. db Intake: 12:53 IV: 1000ml; Total: 1000ml. db Outcome: 10:44 Discharged to home ambulatory, with family. db 10:44 Condition: stable 10:44 Discharge instructions given to patient, Instructed on discharge instructions, follow up and referral plans. Prescriptions given X 3. 12:20 Discharge ordered by MD. montano 12:57 Patient left the ED. db Signatures: Dispatcher [employer] EDMS Manish Greene MD MD cha Quilty, Betty bq Baxter, Heather, RN RN Christin Sidhu RN RN Theresa Hackett 6 Shirlene Isaac, CHRISTOPHER WHITE ts1
[2023-03-04 13:32] VITALS: TEMP 98.1
[2023-03-04 13:34] VITALS: O2SAT 100
[2023-03-04 13:36] VITALS: BP 109/70
--- NOTE | 2023-03-05 07:28 | EKG ---
Test Date: 2023-03-04 Test Time: 10:56:54 Nutrition Services Worker: JULIAN MEASUREMENT RESULTS: Intervals: Rate: 66 LA: 166 QRSD: 86 QT: 392 QTc: 410 [place]: P: 52 LA: 166 QRS: 16 T: 27 INTERPRETIVE STATEMENTS: Normal sinus rhythm Cannot rule out Anterior infarct, age undetermined Abnormal ECG Compared to ECG 03/04/2023 09:09:30 Myocardial infarct finding now present Sinus arrhythmia no longer present Electronically Signed On 03-05-23 07:25:24 CDT by Erasto Davis
--- NOTE | 2023-03-05 07:28 | EKG ---
Test Date: 2023-03-04 Test Time: 09:09:30 Reed Repairer: JULIAN MEASUREMENT RESULTS: Intervals: Rate: 70 FL: 150 QRSD: 82 QT: 358 QTc: 386 [place]: P: 46 FL: 150 QRS: 30 T: 48 INTERPRETIVE STATEMENTS: Normal sinus rhythm with sinus arrhythmia Normal ECG No previous ECG available for comparison Electronically Signed On 03-05-23 07:25:28 CDT by Erasto Davis
--- NOTE | 2023-03-08 14:42 | EKG ---
Test Date: 2023-03-04 Test Time: 10:56:28 Training Executive: JULIAN MEASUREMENT RESULTS: Intervals: Rate: 73 WA: 156 QRSD: 80 QT: 388 QTc: 427 [place]: P: 55 WA: 156 QRS: 21 T: 34 INTERPRETIVE STATEMENTS: Normal sinus rhythm with sinus arrhythmia Normal ECG Compared to ECG 03/04/2023 09:09:30 No significant changes Electronically Signed On 03-08-23 14:38:58 CDT by Perry Neal
== END 2023-03-04 12:57 | disposition home or self-care (01) ==
LOC: ER 08:46
DX: R07.89 Other chest pain (principal); R06.00 Dyspnea, unspecified; R29.91 Unspecified symptoms and signs involving the musculoskeletal system
CPT/HCPCS: 36415; 71045; 71275; 74175; 76705; 80048; 80076; 81025; 83690; 83735; 83880; 84484; 85025; 85610; 93005; 96361; 96374; 96375; 99285; J2405; J3010; J7030; Q9967